=== PATIENT | male | born 1955 | race Caucasian/White ===

== ENCOUNTER 2017-12-12 07:45 | Day surgery (SDC) | payer MEDICARE ==
[~2017-12-12] VITALS: Ht 180.3 cm; Wt 83.9 kg
[~2017-12-12 07:45] MED LIST: ACYC400 PO; ALBU90OI INH; ASPI81CH PO; Advair Hfa 230-12 GM INH; Aspirin EC325 MG PO; CLON2 PO; DIAZ5 PO; GABA300 PO; HYDACE10B PO; IBUP400 PO; IBUP800 PO; LEVSOD50 PO; LISI5 PO; LORA10 PO; MELO7.5 PO; META800 PO; MULTI VITAMIN1 EACH PO; Mucinex1200 MG PO; NAPR500 PO; OXYACE5T PO; PRAV20 PO; PRED10 PO; PRED20 PO; TRAM50 PO
== END 2017-12-12 22:37 | disposition home or self-care (01) ==
LOC: ORSCMMR 07:45 → ORD 10:30 → ORSCMMR 22:37
PROVIDERS: Surgery
PROC: 0WUF0JZ Supplement Abdominal Wall with Synthetic Substitute, Open Approach (ICD-10-PCS; principal; 2017-12-12 09:30)
DX: K42.9 Umbilical hernia without obstruction or gangrene (principal); I10 Essential (primary) hypertension; J44.9 Chronic obstructive pulmonary disease, unspecified; E03.9 Hypothyroidism, unspecified; Z79.899 Other long term (current) drug therapy; Z79.82 Long term (current) use of aspirin; Z87.891 Personal history of nicotine dependence
CPT/HCPCS: C1781; J0330; J0690; J2001; J2250; J3010; J7120

== ENCOUNTER 2018-06-12 11:09 | Emergency (ER) | payer MEDICARE ==
[~2018-06-12] VITALS: Ht 182.9 cm; Wt 83.9 kg
[2018-06-12 11:59] LABS: BASOPHILS ABSOLUTE AUTO 0.08 K/mm3 (0.00-0.23); BASOPHILS PERCENT AUTO 1 % (0-2); EOSINOPHILS ABSOLUTE AUTO 0.41 K/mm3 (0.00-0.68); EOSINOPHILS PERCENT AUTO 6 % (0-6); Hematocrit 43.4 % (37.0-53.0); IMMATURE GRAN ABSOLUTE AUTO 0.03 K/mm3 (0.00-0.10); IMMATURE GRAN PERCENT AUTO 0 % (0-1); LYMPHOCYTES ABSOLUTE AUTO 1.49 K/mm3 (0.84-5.20); LYMPHOCYTES PERCENT AUTO 20 % (21-46); MONOCYTES ABSOLUTE AUTO 0.49 K/mm3 (0.16-1.47); MONOCYTES PERCENT AUTO 7 % (4-13); Mean Corpuscular HGB 30.4 pg (26.0-34.0); Mean Corpuscular HGB Conc 32.3 g/dL (31.5-36.5); Mean Corpuscular Volume 94 fL (80-100); Mean Platelet Volume 9.1 fL (9.1-12.4); NEUTROPHILS ABSOLUTE AUTO 4.94 K/mm3 (1.96-9.15); NEUTROPHILS PERCENT AUTO 66 % (41-73); Platelet Count 255 K/mm3 (150-400); RDW Coefficient Variation 12.4 % (11.7-14.2); RDW Standard Deviation 42.9 fL (35.1-46.3); White Blood Cell Count 7.44 K/mm3 (4.00-11.30)
[2018-06-12 12:24] LABS: Alanine Aminotransfer (ALT/SGP 20 U/L (12-78); Albumin, Blood 4.1 g/dL (3.4-5.0); Albumin/Globulin Ratio 0.9 (0.8-1.8); Alk Phos 94 U/L (50-136); Anion Gap 5 mmol/L (6-16); Aspartate Aminotrans (AST/SGOT 19 U/L (12-37); Bilirubin, Total 0.3 mg/dL (0.1-1.0); Blood Urea Nitrogen 12 mg/dL (8-24); Bun/Creatinine Ratio 13.2 (12.0-20.0); CO2, Blood 25 mmol/L (21-32); Chloride, Blood 106 mmol/L (98-108); Creatinine, Blood 0.91 mg/dL (0.60-1.20); Globulin, Blood 4.4 g/dL (2.2-4.0); Glomerular Filtration Rate >60 (60-); Glucose, Blood 104 mg/dL (70-99); Potassium, Blood 4.5 mmol/L (3.5-5.5); Sodium, Blood 136 mmol/L (136-145); Total Protein, Blood 8.5 g/dL (6.4-8.2); Troponin I <0.015 ng/mL (0.000-0.040)
[2018-06-12] MEDS ORDERED: Advair Hfa 230-12 GM (12:36)
[2018-06-12] MEDS ORDERED: COMBIVENT RESPIM4 GM (12:36)
[2018-06-12] MEDS ORDERED: ALBU90OI INH (16:02)
[2018-06-12] MEDS ORDERED: Zithromax250 MG PO (16:02)
[2018-06-12] MEDS ORDERED: PRED20 PO (16:02)
[2018-06-12] MEDS ORDERED: NICO21TP TD (16:12)
== END 2018-06-12 16:20 | disposition home or self-care (01) ==
LOC: ER 11:09
PROVIDERS: Emergency Medicine
DX: J44.1 Chronic obstructive pulmonary disease with (acute) exacerbation (principal); F17.200 Nicotine dependence, unspecified, uncomplicated; Z86.73 Personal history of transient ischemic attack (TIA), and cerebral infarction without residual deficits; Z79.899 Other long term (current) drug therapy
CPT/HCPCS: 36415; 71046; 80053; 84484; 85025; 93005; 93010; 94640; 96361; 96365; 96375; 99284-25; J2930; J3475; J7030

== ENCOUNTER 2022-01-04 19:30 | Emergency (ER) | payer MEDICARE ==
[~2022-01-04] VITALS: Ht 182.9 cm; Wt 82.1 kg
[~2022-01-04 19:30] MED LIST changes: +Advair Hfa 230-12 GM; +COMBIVENT RESPIM4 GM; +NICO21TP TD; +Zithromax250 MG PO
[2022-01-04] MEDS ORDERED: EUTHYROX100 MC1 PO (20:02)
[2022-01-04 20:34] LABS: BASOPHILS ABSOLUTE AUTO 0.06 K/mm3 (0.00-0.23); BASOPHILS PERCENT AUTO 1 % (0-2); EOSINOPHILS ABSOLUTE AUTO 0.31 K/mm3 (0.00-0.68); EOSINOPHILS PERCENT AUTO 3 % (0-6); Hematocrit 36.3 % (37.0-53.0); IMMATURE GRAN ABSOLUTE AUTO 0.03 K/mm3 (0.00-0.10); IMMATURE GRAN PERCENT AUTO 0 % (0-1); LYMPHOCYTES ABSOLUTE AUTO 1.76 K/mm3 (0.84-5.20); LYMPHOCYTES PERCENT AUTO 17 % (21-46); MONOCYTES ABSOLUTE AUTO 0.51 K/mm3 (0.16-1.47); MONOCYTES PERCENT AUTO 5 % (4-13); Mean Corpuscular HGB 29.9 pg (26.0-34.0); Mean Corpuscular HGB Conc 33.1 g/dL (31.5-36.5); Mean Corpuscular Volume 90 fL (80-100); Mean Platelet Volume 9.3 fL (9.1-12.4); NEUTROPHILS ABSOLUTE AUTO 7.43 K/mm3 (1.96-9.15); NEUTROPHILS PERCENT AUTO 74 % (41-73); Platelet Count 285 K/mm3 (150-400); RDW Coefficient Variation 13.2 % (11.7-14.2); RDW Standard Deviation 43.7 fL (35.1-46.3); Red Blood Cell Count 4.02 M/mm3 (4.30-5.90)
[2022-01-04 20:53] LABS: Albumin, Blood 3.1 g/dL (3.4-5.0); Albumin/Globulin Ratio 0.7 (0.8-1.8); Bilirubin, Total 0.3 mg/dL (0.1-1.0); Bun/Creatinine Ratio 12.1 (12.0-20.0); Calcium, Blood 9.1 mg/dL (8.5-10.1); Creatinine, Blood 0.83 mg/dL (0.60-1.20); Globulin, Blood 4.3 g/dL (2.2-4.0); Potassium, Blood 3.9 mmol/L (3.5-5.5); Total Protein, Blood 7.4 g/dL (6.4-8.2)
[2022-01-04] MEDS ORDERED: DOXY100 PO (21:59)
[2022-01-04] MEDS ORDERED: PRED20 PO (21:59)
[2022-01-04] MEDS ORDERED: ALBU90OI INH (22:15)
== END 2022-01-04 22:17 | disposition home or self-care (01) ==
LOC: ER 19:30
PROVIDERS: Student in an Organized Health Care Education/Training Program
DX: J44.1 Chronic obstructive pulmonary disease with (acute) exacerbation (principal); I10 Essential (primary) hypertension; Z86.73 Personal history of transient ischemic attack (TIA), and cerebral infarction without residual deficits; Z87.891 Personal history of nicotine dependence; Z79.899 Other long term (current) drug therapy; Z79.52 Long term (current) use of systemic steroids
CPT/HCPCS: 71046; 80053; 85025; 93005; 93010; 94640; 94664; A9270; J7512

== ENCOUNTER 2023-02-10 16:19 | Inpatient (IN) | payer MEDICARE ==
[~2023-02-10] VITALS: Ht 182.9 cm; Wt 92.5 kg
[~2023-02-10 16:19] MED LIST changes: +DOXY100 PO; +EUTHYROX100 MC1 PO
[2023-02-10 17:13] LABS: BASOPHILS ABSOLUTE AUTO 0.04 K/mm3 (0.00-0.23); BASOPHILS PERCENT AUTO 0 % (0-2); EOSINOPHILS ABSOLUTE AUTO 0.12 K/mm3 (0.00-0.68); EOSINOPHILS PERCENT AUTO 1 % (0-6); Hemoglobin 12.4 g/dL (13.5-17.5); IMMATURE GRAN ABSOLUTE AUTO 0.11 K/mm3 (0.00-0.10); IMMATURE GRAN PERCENT AUTO 1 % (0-1); LYMPHOCYTES ABSOLUTE AUTO 2.01 K/mm3 (0.84-5.20); LYMPHOCYTES PERCENT AUTO 11 % (21-46); MONOCYTES ABSOLUTE AUTO 1.05 K/mm3 (0.16-1.47); MONOCYTES PERCENT AUTO 6 % (4-13); Mean Corpuscular HGB 29.3 pg (26.0-34.0); Mean Corpuscular HGB Conc 32.6 g/dL (31.5-36.5); Mean Corpuscular Volume 90 fL (80-100); Mean Platelet Volume 9.5 fL (9.1-12.4); NEUTROPHILS ABSOLUTE AUTO 15.14 K/mm3 (1.96-9.15); NEUTROPHILS PERCENT AUTO 82 % (41-73); Platelet Count 261 K/mm3 (150-400); RDW Coefficient Variation 13.9 % (11.7-14.2); RDW Standard Deviation 45.2 fL (35.1-46.3); Red Blood Cell Count 4.23 M/mm3 (4.30-5.90); White Blood Cell Count 18.47 K/mm3 (4.00-11.30)
[2023-02-10 17:38] LABS: Albumin, Blood 3.8 g/dL (3.4-5.0); Albumin/Globulin Ratio 0.9 (0.8-1.8); Bilirubin, Total 0.4 mg/dL (0.1-1.0); Bun/Creatinine Ratio 17.9 (12.0-20.0); Calcium, Blood 9.5 mg/dL (8.5-10.1); Creatinine, Blood 0.95 mg/dL (0.60-1.20); Globulin, Blood 4.1 g/dL (2.2-4.0); Potassium, Blood 3.7 mmol/L (3.5-5.5); Total Protein, Blood 7.9 g/dL (6.4-8.2)
[2023-02-10] MEDS ORDERED: ALBU90OI INH (23:05)
[2023-02-10] MEDS ORDERED: Prednisone10 MG PO (23:06)
[2023-02-10] MEDS ORDERED: Desyrel150 MG PO (23:09)
[2023-02-10] MEDS ORDERED: BREZTRI AEROS10.7 GM INH (23:09)
[2023-02-10] MEDS ORDERED: DIAZ5 PO (23:09)
[2023-02-10] MEDS ORDERED: FLUT1DIS5 INH (23:10)
[2023-02-10] MEDS ORDERED: SERT100 PO (23:10)
[2023-02-10] MEDS ORDERED: COMBIVENT RESPIM4 G1 INH (23:11)
[2023-02-10 23:34] LABS: Influenza A, PCR NEGATIVE (NEGATIVE); Influenza B, PCR NEGATIVE (NEGATIVE); Resp Syncytial Virus, PCR NEGATIVE (NEGATIVE); SARS-Cov-2 (COVID-19) PCR, MMC NEGATIVE (NEGATIVE)
[2023-02-11 01:38] VITALS: BP 134/72
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
[2023-02-11 03:38] LABS: Source, Urine Clean Catch
[2023-02-11 03:42] LABS: Bilirubin, Urine Neg (Neg); Blood, Urine 1+ (Neg); Glucose Qualitative, Urine Neg (Neg); Ketones, Urine 2+ (Neg); Leukocyte Esterase, Urine 1+ (Neg); Nitrite, Urine Neg (Neg); Protein, Urine Neg (Neg); Specific Gravity, Urine 1.015 (1.003-1.022); Urobilinogen, Urine NORM (Normal)
[2023-02-11 04:19] VITALS: BP 133/74
[2023-02-11 04:33] LABS: Base Excess Venous 2.2 mmol/L; Bicarbonate Venous 26.4 mmol/L (24.0-30.0); PCO2 Venous 37.7 mmHg (38-42); pH Blood Venous 7.45 (7.34-7.37)
[2023-02-11 05:18] LABS: Appearance, Urine Clear (Clear); Color, Urine Yellow (P-Yellow)
[2023-02-11 05:20] LABS: Bacteria Few /hpf; Red Blood Cells, Urine 0-2 /hpf (0-2); Squamous Epithelial Cells Few /hpf (Few); White Blood Cells, Urine 0-2 /hpf (0-5)
--- NOTE | 2023-02-11 05:27 | NUR ---
SHIFT SUMMARY PATIENT DENIES PAIN AND NAUSEA. PATIENT DENIES SHORTNESS OF BREATH AT REST, BUT HAS VISIBLE LABORED BREATHING. PATIENT HAS SHORTNESS OF BREATH WITH EXERTION. PATIENTS MENTATION HAS NOT CHANGED FROM PREVIOUS NOTE. PATIENT ATTEMPTED TO GET OUT OF BED, SITTING ON SIDE OF BED WITH VISIBLE INCREASED WORK OF BREATHING AND AUDIBLE WHEEZE FROM DOORWAY. O2 INCREASED TO 6L, MAINTAINING SATS AT 95%. RT CALLED FOR BREATHING TREATMENT. PATIENT SLEPT ON AND OFF SINCE ARRIVAL TO FLOOR. CONDOM CATH IN PLACE, DRAINING TO GRAVITY. PATIENT IS PLEASANT AND COOPERATIVE WITH CARE.
[2023-02-11 07:36] VITALS: BP 138/93
[2023-02-11 15:47] VITALS: BP 145/75
--- NOTE | 2023-02-11 18:05 | NUR ---
SUMMARY- PT IS DOWN TO 4L OF OXYGEN. PT IS A X2 ASSIST TO THE BSC. MODERATE-SEVERE DYSPNEA UPON EXERTION. AAOX2. ORIENTED TO PALCE AND PERSON ONLY.
[2023-02-11 20:09] VITALS: BP 154/81
[2023-02-11] MEDS ORDERED: PROZAC2010 PO (23:35)
[2023-02-12 04:19] VITALS: BP 157/91
[2023-02-12 05:57] LABS: BASOPHILS ABSOLUTE AUTO 0.01 K/mm3 (0.00-0.23); BASOPHILS PERCENT AUTO 0 % (0-2); EOSINOPHILS PERCENT AUTO 0 % (0-6); Hematocrit 34.1 % (37.0-53.0); Hemoglobin 10.9 g/dL (13.5-17.5); IMMATURE GRAN ABSOLUTE AUTO 0.14 K/mm3 (0.00-0.10); IMMATURE GRAN PERCENT AUTO 1 % (0-1); LYMPHOCYTES PERCENT AUTO 6 % (21-46); MONOCYTES ABSOLUTE AUTO 0.26 K/mm3 (0.16-1.47); MONOCYTES PERCENT AUTO 2 % (4-13); Mean Corpuscular HGB 29.1 pg (26.0-34.0); Mean Corpuscular Volume 91 fL (80-100); Mean Platelet Volume 10.1 fL (9.1-12.4); NEUTROPHILS ABSOLUTE AUTO 11.69 K/mm3 (1.96-9.15); NEUTROPHILS PERCENT AUTO 91 % (41-73); Platelet Count 240 K/mm3 (150-400); RDW Coefficient Variation 13.9 % (11.7-14.2); RDW Standard Deviation 46.5 fL (35.1-46.3); Red Blood Cell Count 3.74 M/mm3 (4.30-5.90)
[2023-02-12 06:33] LABS: Albumin, Blood 2.9 g/dL (3.4-5.0); Albumin/Globulin Ratio 0.7 (0.8-1.8); Bilirubin, Total 0.3 mg/dL (0.1-1.0); Bun/Creatinine Ratio 22.9 (12.0-20.0); Calcium, Blood 9.4 mg/dL (8.5-10.1); Creatinine, Blood 0.74 mg/dL (0.60-1.20); Potassium, Blood 4.1 mmol/L (3.5-5.5); Total Protein, Blood 6.9 g/dL (6.4-8.2)
[2023-02-12 07:31] VITALS: BP 177/87
[2023-02-12 15:28] VITALS: BP 144/79
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
[2023-02-12 20:12] VITALS: BP 144/80
[2023-02-13 03:02] VITALS: BP 140/88
--- NOTE | 2023-02-13 04:25 | NUR ---
END OF SHIFT SUMMARY UNEVENTFUL NIGHT. PT SLEPT MUCH BETTER TONIGHT THAN THE PREVIOUS NIGHT. PT ON 3L OXYGEN VIA NC AND O2 SAT AT 91%. PT ON TELEMETRY NSR HEART RATE IN THE 60'S. RESP RATE EVEN, REGULAR AND UNLABORED. PT A&O x4, VSS, AFEBRILE. SEVERE DYSPNEA OCCURED WHILE STANDING UP TO USE THE URINAL. PT 1-2P ASSIST WITH TRANSFERS FOR SAFETY D/T OXYGEN TUBING, TELEMETRY CORDS, AND CONTINUOUS PULSE OX TO LEFT INDEX FINGER. SAFETY CHECKS COMPLETED ON THIS SHIFT. BED ALARM TURNED ON. PT PLEASANT, VERY SOCIAL AND COOPERATIVE WITH CARE PROVIDED. PT ABLE TO MAKE NEEDS KNOWN. CALL LIGHT WITHIN REACH, WCTM.
[2023-02-13 06:08] LABS: BASOPHILS ABSOLUTE AUTO 0.01 K/mm3 (0.00-0.23); BASOPHILS PERCENT AUTO 0 % (0-2); EOSINOPHILS PERCENT AUTO 0 % (0-6); Hemoglobin 11.5 g/dL (13.5-17.5); IMMATURE GRAN ABSOLUTE AUTO 0.09 K/mm3 (0.00-0.10); IMMATURE GRAN PERCENT AUTO 1 % (0-1); LYMPHOCYTES ABSOLUTE AUTO 1.04 K/mm3 (0.84-5.20); LYMPHOCYTES PERCENT AUTO 9 % (21-46); MONOCYTES PERCENT AUTO 4 % (4-13); Mean Corpuscular HGB 29.2 pg (26.0-34.0); Mean Corpuscular HGB Conc 31.9 g/dL (31.5-36.5); Mean Corpuscular Volume 91 fL (80-100); Mean Platelet Volume 9.9 fL (9.1-12.4); NEUTROPHILS ABSOLUTE AUTO 10.65 K/mm3 (1.96-9.15); NEUTROPHILS PERCENT AUTO 87 % (41-73); Platelet Count 266 K/mm3 (150-400); RDW Coefficient Variation 13.8 % (11.7-14.2); RDW Standard Deviation 46.4 fL (35.1-46.3); Red Blood Cell Count 3.94 M/mm3 (4.30-5.90); White Blood Cell Count 12.29 K/mm3 (4.00-11.30)
[2023-02-13 06:27] LABS: Bun/Creatinine Ratio 31.9 (12.0-20.0); Calcium, Blood 9.9 mg/dL (8.5-10.1); Creatinine, Blood 0.72 mg/dL (0.60-1.20); Potassium, Blood 4.1 mmol/L (3.5-5.5)
[2023-02-13 07:26] VITALS: BP 168/118
[2023-02-13 07:29] VITALS: BP 167/81
--- NOTE | 2023-02-13 12:09 | NUR ---
DR FORDE NOTOFED DR FORDE OF THE RESULTS OF PT HOME O2 EVAL. NO ORDERS AT THIS TIME. CONTINUE POC.
[2023-02-13] MEDS ORDERED: Loratadine10 MG PO (15:27)
[2023-02-13] MEDS ORDERED: LOSA25 PO (15:27)
[2023-02-13] MEDS ORDERED: PRED20 PO (15:30)
[2023-02-13] MEDS ORDERED: BUDESONIDE0.5 MG/2 M INH (15:31)
[2023-02-13 15:33] VITALS: BP 143/80
--- NOTE | 2023-02-13 16:41 | NUR ---
DISCHARGE DISCHARGED HOME. H/H TO BE ARRANGED. IV REMOVED WITH CANNULA ITNACT. PRESSURE DRESSING APPLIED. CONTINUE POC.
== END 2023-02-13 16:26 | disposition home health service (06) | DRG 189 ==
LOC: ER 16:19 → ERHOLD 23:59 → MEDS 23:59 → ENPENDDIS 02-13 15:50 → MEDS 02-13 16:26
PROVIDERS: Hospitalist; Physician Assistant; Student in an Organized Health Care Education/Training Program; ADMIT Internal Medicine
DX: J96.01 Acute respiratory failure with hypoxia (principal); J44.1 Chronic obstructive pulmonary disease with (acute) exacerbation; J96.22 Acute and chronic respiratory failure with hypercapnia; I10 Essential (primary) hypertension; F17.210 Nicotine dependence, cigarettes, uncomplicated; D72.829 Elevated white blood cell count, unspecified; E03.9 Hypothyroidism, unspecified; F41.8 Other specified anxiety disorders; Z98.890 Other specified postprocedural states; Z90.2 Acquired absence of lung [part of]; Z86.73 Personal history of transient ischemic attack (TIA), and cerebral infarction without residual deficits; Z79.890 Hormone replacement therapy; Z79.899 Other long term (current) drug therapy
CPT/HCPCS: 0241U; 36415; 71046; 80048; 80053; 81001; 82803; 83605; 85025; 87040; 87086; 93005; 93010; 94640; 94645; 94664; 94760; 94761; 94762; 96365; 96367; 96375; 97110; 97116; 97162; 97165; 97530; 97535; 99285-25; A9270; C9113; J0360; J0456; J0696; J1650; J2930; J7050; J7626

== ENCOUNTER 2023-03-26 16:52 | Emergency (ER) | payer MEDICARE ==
[~2023-03-26] VITALS: Ht 182.9 cm; Wt 93.4 kg
[~2023-03-26 16:52] MED LIST changes: +BREZTRI AEROS10.7 GM INH; +BUDESONIDE0.5 MG/2 M INH; +COMBIVENT RESPIM4 G1 INH; +Desyrel150 MG PO; +FLUT1DIS5 INH; +LOSA25 PO; +Loratadine10 MG PO; +PROZAC2010 PO; +Prednisone10 MG PO; +SERT100 PO
[2023-03-26 17:10] VITALS: BP 158/82
[2023-03-26 17:36] LABS: BASOPHILS ABSOLUTE AUTO 0.03 K/mm3 (0.00-0.23); BASOPHILS PERCENT AUTO 0 % (0-2); EOSINOPHILS ABSOLUTE AUTO 0.08 K/mm3 (0.00-0.68); EOSINOPHILS PERCENT AUTO 1 % (0-6); Hematocrit 42.1 % (37.0-53.0); Hemoglobin 13.3 g/dL (13.5-17.5); IMMATURE GRAN ABSOLUTE AUTO 0.11 K/mm3 (0.00-0.10); IMMATURE GRAN PERCENT AUTO 1 % (0-1); LYMPHOCYTES PERCENT AUTO 13 % (21-46); MONOCYTES ABSOLUTE AUTO 0.54 K/mm3 (0.16-1.47); MONOCYTES PERCENT AUTO 5 % (4-13); Mean Corpuscular HGB Conc 31.6 g/dL (31.5-36.5); Mean Corpuscular Volume 92 fL (80-100); Mean Platelet Volume 9.6 fL (9.1-12.4); NEUTROPHILS PERCENT AUTO 80 % (41-73); Platelet Count 269 K/mm3 (150-400); RDW Coefficient Variation 14.1 % (11.7-14.2); RDW Standard Deviation 47.3 fL (35.1-46.3); Red Blood Cell Count 4.58 M/mm3 (4.30-5.90); White Blood Cell Count 10.06 K/mm3 (4.00-11.30)
[2023-03-26 18:04] LABS: Albumin, Blood 3.7 g/dL (3.4-5.0); Albumin/Globulin Ratio 0.9 (0.8-1.8); Bilirubin, Total 0.2 mg/dL (0.1-1.0); Calcium, Blood 9.6 mg/dL (8.5-10.1); Creatinine, Blood 0.93 mg/dL (0.60-1.20); Globulin, Blood 4.2 g/dL (2.2-4.0); Potassium, Blood 4.2 mmol/L (3.5-5.5); Total Protein, Blood 7.9 g/dL (6.4-8.2)
== END 2023-03-26 20:13 | disposition home or self-care (01) ==
LOC: ER 16:52
PROVIDERS: Physician Assistant
DX: J44.1 Chronic obstructive pulmonary disease with (acute) exacerbation (principal); I10 Essential (primary) hypertension; Z79.899 Other long term (current) drug therapy; Z87.891 Personal history of nicotine dependence
CPT/HCPCS: 71046; 80053; 83690; 83880; 84484; 85025; 93005; 93010; 94640; 94664; 99285-25

== ENCOUNTER 2023-04-12 05:31 | Observation (INO) | payer MEDICARE ==
[~2023-04-12] VITALS: Ht 182.9 cm; Wt 92.5 kg
[2023-04-12 06:06] LABS: BASOPHILS ABSOLUTE AUTO 0.08 K/mm3 (0.00-0.23); BASOPHILS PERCENT AUTO 1 % (0-2); EOSINOPHILS ABSOLUTE AUTO 0.36 K/mm3 (0.00-0.68); EOSINOPHILS PERCENT AUTO 4 % (0-6); Hematocrit 40.3 % (37.0-53.0); Hemoglobin 12.8 g/dL (13.5-17.5); IMMATURE GRAN ABSOLUTE AUTO 0.05 K/mm3 (0.00-0.10); IMMATURE GRAN PERCENT AUTO 1 % (0-1); LYMPHOCYTES ABSOLUTE AUTO 2.02 K/mm3 (0.84-5.20); LYMPHOCYTES PERCENT AUTO 23 % (21-46); MONOCYTES ABSOLUTE AUTO 0.52 K/mm3 (0.16-1.47); MONOCYTES PERCENT AUTO 6 % (4-13); Mean Corpuscular HGB 29.3 pg (26.0-34.0); Mean Corpuscular HGB Conc 31.8 g/dL (31.5-36.5); Mean Corpuscular Volume 92 fL (80-100); Mean Platelet Volume 9.5 fL (9.1-12.4); NEUTROPHILS ABSOLUTE AUTO 5.62 K/mm3 (1.96-9.15); NEUTROPHILS PERCENT AUTO 65 % (41-73); Platelet Count 254 K/mm3 (150-400); RDW Coefficient Variation 14.1 % (11.7-14.2); RDW Standard Deviation 47.7 fL (35.1-46.3); Red Blood Cell Count 4.37 M/mm3 (4.30-5.90); White Blood Cell Count 8.65 K/mm3 (4.00-11.30)
[2023-04-12 06:22] LABS: Albumin, Blood 3.7 g/dL (3.4-5.0); Albumin/Globulin Ratio 0.9 (0.8-1.8); Bilirubin, Total 0.3 mg/dL (0.1-1.0); Bun/Creatinine Ratio 8.9 (12.0-20.0); Calcium, Blood 9.1 mg/dL (8.5-10.1); Creatinine, Blood 1.01 mg/dL (0.60-1.20); Globulin, Blood 4.1 g/dL (2.2-4.0); Potassium, Blood 3.7 mmol/L (3.5-5.5); Total Protein, Blood 7.8 g/dL (6.4-8.2)
[2023-04-12 06:33] LABS: Base Excess Venous 7.6 mmol/L; Bicarbonate Venous 28.4 mmol/L (24.0-30.0); PCO2 Venous 66.3 mmHg (38-42); pH Blood Venous 7.32 (7.34-7.37)
[2023-04-12 11:23] VITALS: BP 187/91
--- NOTE | 2023-04-12 15:49 | NUR ---
SHIFT SUMMARY 11:15 RECEIVED PT TO RM 311 VIA W/C FROM ER. PT TO ER WITH C/O SOB AND DSYPNEA. PER REPORT, PT VERY WHEEZY, BUT IMPROVED AFTER 1 HR LONG RT TX. AND SOLUMEDROL. PT ABLE TO TX SELF TO BED AND LATER UP TO BTHRM USING FWW AND SBA. PT WITH HX OF CVA, REPORTING SOME L SIDE WEAKNESS. DR HERNANDEZ NOTIFIED OF PT'S REQUEST FOR FOOD AND MEDS. PT NPO UNTIL TROPONIN COMPLETE. PT TO EAT DINNER AND THEN BE NPO AGAIN FOR ONE DAY STRESS TEST PROTOCOL TO START AT 0800 TOMORROW. RT TX'S ORDERED AND GIVEN PER EMAR AND RT. PT SITTING UP TO EOB WATCHING TV AND TALKING ON PHONE. PT DOES GET SOB WITH DYSPNEA GETTING UP TO BTHRM, BUT DOES RECOVER AT REST AGAIN. CALL LT IN REACH. ABLE TO MAKE NEEDS KNOWN.
[2023-04-12 15:52] VITALS: BP 149/80
[2023-04-12 20:00] VITALS: BP 180/102
[2023-04-13 02:30] LABS: BASOPHILS ABSOLUTE AUTO 0.02 K/mm3 (0.00-0.23); BASOPHILS PERCENT AUTO 0 % (0-2); EOSINOPHILS ABSOLUTE AUTO 0.03 K/mm3 (0.00-0.68); EOSINOPHILS PERCENT AUTO 0 % (0-6); Hematocrit 37.3 % (37.0-53.0); Hemoglobin 12.4 g/dL (13.5-17.5); IMMATURE GRAN ABSOLUTE AUTO 0.05 K/mm3 (0.00-0.10); IMMATURE GRAN PERCENT AUTO 1 % (0-1); LYMPHOCYTES ABSOLUTE AUTO 1.63 K/mm3 (0.84-5.20); LYMPHOCYTES PERCENT AUTO 17 % (21-46); MONOCYTES ABSOLUTE AUTO 0.76 K/mm3 (0.16-1.47); MONOCYTES PERCENT AUTO 8 % (4-13); Mean Corpuscular HGB 29.5 pg (26.0-34.0); Mean Corpuscular HGB Conc 33.2 g/dL (31.5-36.5); Mean Corpuscular Volume 89 fL (80-100); Mean Platelet Volume 9.4 fL (9.1-12.4); NEUTROPHILS ABSOLUTE AUTO 7.33 K/mm3 (1.96-9.15); NEUTROPHILS PERCENT AUTO 75 % (41-73); Platelet Count 252 K/mm3 (150-400); Red Blood Cell Count 4.21 M/mm3 (4.30-5.90); White Blood Cell Count 9.82 K/mm3 (4.00-11.30)
[2023-04-13 02:49] LABS: Albumin, Blood 3.4 g/dL (3.4-5.0); Albumin/Globulin Ratio 0.8 (0.8-1.8); Bilirubin, Total 0.3 mg/dL (0.1-1.0); Bun/Creatinine Ratio 14.5 (12.0-20.0); Calcium, Blood 9.5 mg/dL (8.5-10.1); Creatinine, Blood 0.9 mg/dL (0.60-1.20); Globulin, Blood 4.1 g/dL (2.2-4.0); Potassium, Blood 3.7 mmol/L (3.5-5.5); Total Protein, Blood 7.5 g/dL (6.4-8.2)
[2023-04-13 03:52] VITALS: BP 173/86
--- NOTE | 2023-04-13 04:46 | NUR ---
HOSPITALIST CONTACTED. DR. ROBLEDO CONTACTED, PATIENT SYSTOLIC B/P AT 173- DR ROBLEDO ORDERED APRESELINE FOR SBP > 160. MEDICATION ADMINISTRATED PER ORDERED.
--- NOTE | 2023-04-13 05:53 | NUR ---
SHIFT SUMMARY PATIENT SLEPT MOST OF NIGHT. PATIENT USED A URINAL AT BEDSIDE AND CALLED TO GET UP AND USE THE RESTROOM AT TIMES. PATIENT IS PLEASANT AND COOPERATIVE WITH CARE. THIS MORNING PATIENT REPORTS THAT HE IS HAVING DIFFICULTY BREATHING AND WOULS LIKE OXYGEN. PATIENTS O2 STATS ARE AT 96% WHEN CHECKED WITH THE VITALS TOWER. PATIENT SITTING UP AT BEDSIDE. ENCOURAGED PATIENT TO TAKE SLOW DEEP BREATHES IN THROUGH THE NOSE AND OUT THROUGH THE MOUTH. BED IS LOCKED IN THE LOWEEST POSITION WITH CALL LIGHT IN REACH. PATIENT REPORTS THAT HE DID THIS DURING THE NIGHT TO GET THROUGH A LITTLE SPELL OF HAVING A HARD TIME CATCHING HIS BREATH WITH RELIEF AND WAS ABLE TO GO BACK TO SLEEP. BED IS KERI IN THE LOWEST POSITION WITH CALL LIGHT IN REACH FOR SAFETY.
[2023-04-13 07:28] VITALS: BP 148/82
[2023-04-13] MEDS ORDERED: AZIT250 PO (15:17)
[2023-04-13] MEDS ORDERED: PRED20 PO (15:18)
[2023-04-13] MEDS ORDERED: SYMBICORT 160-4.6 GM INH (15:19)
--- NOTE | 2023-04-13 16:23 | NUR ---
PT AWAKE AT START OF SHIFT, SITTING UP TO EOB. PT NPO FOR ONE DAY STRESS TEST PROTOCOL. STRESS TEST PROTOCOL COMPLETE. DR HERNANDEZ NOTIFIED OF COMPLETION TO REVIEW. D/C ORDERS PLACED. MEDS FAXED TO [facility] PER PT REQUEST. PT'S IN EARLY TODAY AND REMAINED AT BS. D/C ORDERED REVIEWED WITH PT AND . VERBALIZED UNDERSTANDING. PT ASSISTED OUT TO 'S CAR VIA W/C, BELONGINGS IN HAND.
== END 2023-04-13 15:51 | disposition home or self-care (01) ==
LOC: ER 05:31 → MEDS 05:32
PROVIDERS: Student in an Organized Health Care Education/Training Program; ADMIT Internal Medicine
DX: J44.1 Chronic obstructive pulmonary disease with (acute) exacerbation (principal); R07.9 Chest pain, unspecified; E03.9 Hypothyroidism, unspecified; F32.A Depression, unspecified; I10 Essential (primary) hypertension; K21.9 Gastro-esophageal reflux disease without esophagitis; E78.5 Hyperlipidemia, unspecified; Z86.73 Personal history of transient ischemic attack (TIA), and cerebral infarction without residual deficits
CPT/HCPCS: 36415; 36416; 71045; 78452; 80053; 82803; 83880; 84443; 84484; 85025; 93005; 93010; 93017; 94640; 94644; 94664; 94760; 96372; 96374-59; 96375; 96376; 99285-25; A9270; A9500; G0378; J0360; J0706; J1650; J2785; J2920; J2930

== ENCOUNTER 2023-06-12 11:50 | Emergency (ER) | payer MEDICARE ==
[~2023-06-12] VITALS: Ht 175.3 cm; Wt 93.4 kg
[~2023-06-12 11:50] MED LIST changes: +AZIT250 PO; +SYMBICORT 160-4.6 GM INH
[2023-06-12 14:10] LABS: BASOPHILS ABSOLUTE AUTO 0.02 K/mm3 (0.00-0.23); BASOPHILS PERCENT AUTO 0 % (0-2); EOSINOPHILS ABSOLUTE AUTO 0.02 K/mm3 (0.00-0.68); EOSINOPHILS PERCENT AUTO 0 % (0-6); Hematocrit 36.9 % (37.0-53.0); Hemoglobin 12.1 g/dL (13.5-17.5); IMMATURE GRAN ABSOLUTE AUTO 0.06 K/mm3 (0.00-0.10); IMMATURE GRAN PERCENT AUTO 1 % (0-1); LYMPHOCYTES ABSOLUTE AUTO 0.55 K/mm3 (0.84-5.20); LYMPHOCYTES PERCENT AUTO 7 % (21-46); MONOCYTES ABSOLUTE AUTO 0.27 K/mm3 (0.16-1.47); MONOCYTES PERCENT AUTO 3 % (4-13); Mean Corpuscular HGB 30.2 pg (26.0-34.0); Mean Corpuscular HGB Conc 32.8 g/dL (31.5-36.5); Mean Corpuscular Volume 92 fL (80-100); Mean Platelet Volume 9.4 fL (9.1-12.4); NEUTROPHILS ABSOLUTE AUTO 6.99 K/mm3 (1.96-9.15); NEUTROPHILS PERCENT AUTO 88 % (41-73); Platelet Count 222 K/mm3 (150-400); RDW Coefficient Variation 15.2 % (11.7-14.2); RDW Standard Deviation 51.5 fL (35.1-46.3); Red Blood Cell Count 4.01 M/mm3 (4.30-5.90); White Blood Cell Count 7.91 K/mm3 (4.00-11.30)
[2023-06-12 14:33] LABS: Albumin, Blood 3.3 g/dL (3.4-5.0); Albumin/Globulin Ratio 0.8 (0.8-1.8); Bilirubin, Total 0.2 mg/dL (0.1-1.0); Bun/Creatinine Ratio 19.5 (12.0-20.0); Calcium, Blood 9.2 mg/dL (8.5-10.1); Creatinine, Blood 0.77 mg/dL (0.60-1.20); Globulin, Blood 4.2 g/dL (2.2-4.0); Potassium, Blood 3.7 mmol/L (3.5-5.5); Total Protein, Blood 7.5 g/dL (6.4-8.2)
[2023-06-12] MEDS ORDERED: BUDESONIDE1 MG/2 M5 IH (16:18)
[2023-06-12] MEDS ORDERED: TRELEGY ELLIPT1 EACH IH (16:18)
[2023-06-12] MEDS ORDERED: Prednisone20 MG PO (16:27)
[2023-06-12 16:43] VITALS: BP 163/81
== END 2023-06-12 16:44 | disposition home or self-care (01) ==
LOC: ER 11:50
PROVIDERS: Physician Assistant
DX: J44.1 Chronic obstructive pulmonary disease with (acute) exacerbation (principal); I10 Essential (primary) hypertension; Z86.73 Personal history of transient ischemic attack (TIA), and cerebral infarction without residual deficits; Z87.09 Personal history of other diseases of the respiratory system; Z87.891 Personal history of nicotine dependence; Z79.51 Long term (current) use of inhaled steroids; Z79.52 Long term (current) use of systemic steroids; Z79.899 Other long term (current) drug therapy
CPT/HCPCS: 80053; 85025; 93005; 93010; 99285-25; J7512

== ENCOUNTER 2023-06-23 15:55 | Emergency (ER) | payer MEDICARE ==
[~2023-06-23] VITALS: Ht 182.9 cm; Wt 93.0 kg
[~2023-06-23 15:55] MED LIST changes: +BUDESONIDE1 MG/2 M5 IH; +Prednisone20 MG PO; +TRELEGY ELLIPT1 EACH IH
[2023-06-23 16:40] LABS: BASOPHILS ABSOLUTE AUTO 0.02 K/mm3 (0.00-0.23); BASOPHILS PERCENT AUTO 0 % (0-2); EOSINOPHILS PERCENT AUTO 0 % (0-6); Hematocrit 39.5 % (37.0-53.0); Hemoglobin 12.7 g/dL (13.5-17.5); IMMATURE GRAN ABSOLUTE AUTO 0.11 K/mm3 (0.00-0.10); IMMATURE GRAN PERCENT AUTO 1 % (0-1); LYMPHOCYTES ABSOLUTE AUTO 0.71 K/mm3 (0.84-5.20); LYMPHOCYTES PERCENT AUTO 5 % (21-46); MONOCYTES ABSOLUTE AUTO 0.58 K/mm3 (0.16-1.47); MONOCYTES PERCENT AUTO 4 % (4-13); Mean Corpuscular HGB 29.7 pg (26.0-34.0); Mean Corpuscular HGB Conc 32.2 g/dL (31.5-36.5); Mean Corpuscular Volume 93 fL (80-100); Mean Platelet Volume 9.5 fL (9.1-12.4); NEUTROPHILS ABSOLUTE AUTO 12.12 K/mm3 (1.96-9.15); NEUTROPHILS PERCENT AUTO 90 % (41-73); Platelet Count 362 K/mm3 (150-400); RDW Coefficient Variation 14.6 % (11.7-14.2); RDW Standard Deviation 49.4 fL (35.1-46.3); Red Blood Cell Count 4.27 M/mm3 (4.30-5.90); White Blood Cell Count 13.54 K/mm3 (4.00-11.30)
[2023-06-23 16:46] LABS: Albumin, Blood 3.4 g/dL (3.4-5.0); Albumin/Globulin Ratio 0.8 (0.8-1.8); Bilirubin, Total 0.4 mg/dL (0.1-1.0); Bun/Creatinine Ratio 14.6 (12.0-20.0); Calcium, Blood 10.1 mg/dL (8.5-10.1); Creatinine, Blood 0.89 mg/dL (0.60-1.20); Globulin, Blood 4.4 g/dL (2.2-4.0); Total Protein, Blood 7.8 g/dL (6.4-8.2)
[2023-06-23 17:01] LABS: Influenza A Negative (NEGATIVE); Influenza B Negative (NEGATIVE)
[2023-06-23 17:15] LABS: SARS-Cov-2 (COVID-19) PCR, MMC NEGATIVE (NEGATIVE)
[2023-06-23 20:24] VITALS: BP 151/86
[2023-06-23] MEDS ORDERED: Prednisone20 MG PO (20:27)
[2023-06-23] MEDS ORDERED: Zithromax250 MG PO (20:27)
[2023-06-23] MEDS ORDERED: AMOCLA875 PO (20:27)
== END 2023-06-23 21:12 | disposition home or self-care (01) ==
LOC: ER 15:55
PROVIDERS: Student in an Organized Health Care Education/Training Program
DX: J43.9 Emphysema, unspecified (principal); J18.9 Pneumonia, unspecified organism; I10 Essential (primary) hypertension; Z79.52 Long term (current) use of systemic steroids; Z79.890 Hormone replacement therapy; Z79.899 Other long term (current) drug therapy; Z87.891 Personal history of nicotine dependence
CPT/HCPCS: 36415; 71046; 80053; 83605; 83880; 85025; 87804; 87807; 94640; 94644; 94664; A9270; J0696; J7512; U0002

== ENCOUNTER 2023-07-10 12:59 | Inpatient (IN) | payer MEDICARE ==
[~2023-07-10] VITALS: Ht 177.8 cm; Wt 86.9 kg
[~2023-07-10 12:59] MED LIST changes: +AMOCLA875 PO; -BUDESONIDE1 MG/2 M5 IH; +BUDESONIDE1 MG/2 M5 NEB; -MULTI VITAMIN1 EACH PO; +MULVITA PO; -PRAV20 PO; +Pravastatin Sod80 MG PO; -TRELEGY ELLIPT1 EACH IH; +TRELEGY ELLIPT1 EACH INH
[2023-07-10 13:31] LABS: BASOPHILS ABSOLUTE AUTO 0.07 K/mm3 (0.00-0.23); BASOPHILS PERCENT AUTO 1 % (0-2); EOSINOPHILS ABSOLUTE AUTO 0.27 K/mm3 (0.00-0.68); EOSINOPHILS PERCENT AUTO 2 % (0-6); Hematocrit 41.5 % (37.0-53.0); Hemoglobin 13.6 g/dL (13.5-17.5); IMMATURE GRAN ABSOLUTE AUTO 0.11 K/mm3 (0.00-0.10); IMMATURE GRAN PERCENT AUTO 1 % (0-1); LYMPHOCYTES ABSOLUTE AUTO 1.57 K/mm3 (0.84-5.20); LYMPHOCYTES PERCENT AUTO 12 % (21-46); MONOCYTES ABSOLUTE AUTO 0.54 K/mm3 (0.16-1.47); MONOCYTES PERCENT AUTO 4 % (4-13); Mean Corpuscular HGB 29.4 pg (26.0-34.0); Mean Corpuscular HGB Conc 32.8 g/dL (31.5-36.5); Mean Corpuscular Volume 90 fL (80-100); Mean Platelet Volume 9.1 fL (9.1-12.4); NEUTROPHILS ABSOLUTE AUTO 10.46 K/mm3 (1.96-9.15); NEUTROPHILS PERCENT AUTO 80 % (41-73); Platelet Count 229 K/mm3 (150-400); RDW Coefficient Variation 14.4 % (11.7-14.2); RDW Standard Deviation 46.4 fL (35.1-46.3); Red Blood Cell Count 4.62 M/mm3 (4.30-5.90); White Blood Cell Count 13.02 K/mm3 (4.00-11.30)
[2023-07-10 13:52] LABS: Albumin, Blood 3.2 g/dL (3.4-5.0); Albumin/Globulin Ratio 0.7 (0.8-1.8); Bilirubin, Total 0.4 mg/dL (0.1-1.0); Bun/Creatinine Ratio 13.1 (12.0-20.0); Calcium, Blood 9.8 mg/dL (8.5-10.1); Creatinine, Blood 0.76 mg/dL (0.60-1.20); Globulin, Blood 4.5 g/dL (2.2-4.0); Potassium, Blood 3.3 mmol/L (3.5-5.5); Total Protein, Blood 7.7 g/dL (6.4-8.2)
[2023-07-10 14:18] LABS: Influenza A, PCR NEGATIVE (NEGATIVE); Influenza B, PCR NEGATIVE (NEGATIVE); Resp Syncytial Virus, PCR NEGATIVE (NEGATIVE); SARS-Cov-2 (COVID-19) PCR, MMC NEGATIVE (NEGATIVE)
[2023-07-10] MEDS ORDERED: Ipratropium/Albuterol SulF 2.5-0.5MG/3 ML Amp INH ONE (18:15)
[2023-07-10] MEDS ORDERED: MethylPREDNISolone Sod Succ 125 MG Vial IV ONE (18:15)
[2023-07-10] MEDS ORDERED: CefTRIAXone Sodium 1,000 MG in NS 50 ML IV ONE (18:15)
[2023-07-10] MEDS ORDERED: Azithromycin 500 MG in NS 250 ML IV ONE (18:15)
[2023-07-10] MEDS ORDERED: Albuterol 2.5 MG/3 ML VIAL INH PRN (23:05)
[2023-07-10] MEDS ORDERED: Ipratropium/Albuterol SulF 2.5-0.5MG/3 ML Amp INH SCH (23:05)
[2023-07-11] VITALS (7 sets, daily range): BP systolic 130–197; BP diastolic 74–126
[2023-07-11] MEDS ORDERED: Rivaroxaban 10 MG Tab PO SCH
[2023-07-11] MEDS ORDERED: Melatonin 3 MG Tab PO SCH
[2023-07-11] MEDS ORDERED: MethylPREDNISolone Sod Succ 125 MG Vial IV SCH
[2023-07-11] MEDS ORDERED: Potassium Chloride 40 MEQ in NS 250 ML IV ONE (00:20)
[2023-07-11] MEDS ORDERED: HydrALAZINE HCl 20 MG / ML 1ML Vial IV PRN (02:00)
[2023-07-11] MEDS ORDERED: HydrALAZINE HCl 20 MG / ML 1ML Vial IV ONE (02:00)
--- NOTE | 2023-07-11 04:31 | NUR ---
2215: ASSUMED CARE OF PT, REPORT RECEIVED FROM ED RN. PT ARRIVED TO THE UNIT VIA STRETCHER, TRANSFERED TO THE BED WITH 2LITERS NC. SATURATION OF 95%. PT REMOVED OXYGEN STATING THAT IT IS NOT HELPFUL. PT ABLE TO MAINTAIN OXYGEN SATURATION >92% ON ROOM AIR. PT HAS LABORED BREATHING, CALL TO PROVIDER TO VERIFY ORDERS, NEW ORDERS RECEIVED FOR MEDICATIONS AND RT TREATMENTS. PT SHOWS MINOR IMPROVEMENT WITH TREATMENTS AND POSITIONING. PIV TO RAC IS PATENT, POTASSIUM STARTED PER ORDERS. PT TOLERATED WELL. TELEMETRY PLACED AND MAINTAINED. EKG OBTAINED PER ORDERS. PT IS ABLE TO MAKE HIS NEEDS KNOWN. SBA TO BSC OR STANDING FOR URINAL USE. LIVES AT HOME WITH HIS . NO FURTHER EVENTS DURING THE SHIFT. SAFETY MEASURES TAKEN, ALL NEEDS ADDRESSED.
[2023-07-11 05:59] LABS: BASOPHILS ABSOLUTE AUTO 0.02 K/mm3 (0.00-0.23); BASOPHILS PERCENT AUTO 0 % (0-2); EOSINOPHILS PERCENT AUTO 0 % (0-6); Hematocrit 40.9 % (37.0-53.0); Hemoglobin 13.5 g/dL (13.5-17.5); IMMATURE GRAN ABSOLUTE AUTO 0.11 K/mm3 (0.00-0.10); IMMATURE GRAN PERCENT AUTO 1 % (0-1); LYMPHOCYTES ABSOLUTE AUTO 1.47 K/mm3 (0.84-5.20); LYMPHOCYTES PERCENT AUTO 13 % (21-46); MONOCYTES ABSOLUTE AUTO 0.45 K/mm3 (0.16-1.47); MONOCYTES PERCENT AUTO 4 % (4-13); Mean Corpuscular HGB 28.9 pg (26.0-34.0); Mean Corpuscular Volume 88 fL (80-100); Mean Platelet Volume 9.3 fL (9.1-12.4); NEUTROPHILS ABSOLUTE AUTO 9.17 K/mm3 (1.96-9.15); NEUTROPHILS PERCENT AUTO 82 % (41-73); Platelet Count 274 K/mm3 (150-400); RDW Coefficient Variation 14.3 % (11.7-14.2); RDW Standard Deviation 45.9 fL (35.1-46.3); Red Blood Cell Count 4.67 M/mm3 (4.30-5.90); White Blood Cell Count 11.22 K/mm3 (4.00-11.30)
[2023-07-11] MEDS ORDERED: Levothyroxine Sodium 0.1 MG Tab PO SCH (06:00)
[2023-07-11 06:20] LABS: Albumin, Blood 3.2 g/dL (3.4-5.0); Albumin/Globulin Ratio 0.7 (0.8-1.8); Bilirubin, Total 0.4 mg/dL (0.1-1.0); Bun/Creatinine Ratio 22.3 (12.0-20.0); Calcium, Blood 9.8 mg/dL (8.5-10.1); Creatinine, Blood 0.63 mg/dL (0.60-1.20); Globulin, Blood 4.7 g/dL (2.2-4.0); Potassium, Blood 4.1 mmol/L (3.5-5.5); Total Protein, Blood 7.9 g/dL (6.4-8.2)
[2023-07-11] MEDS ORDERED: Losartan Potassium 25 MG Tab PO SCH (09:00)
[2023-07-11] MEDS ORDERED: Lactobacil 2-S.Thermo-Bifido 1 1 Cap PO SCH (09:00)
[2023-07-11] MEDS ORDERED: CefTRIAXone Sodium 1,000 MG in NS 50 ML IV SCH (09:00)
[2023-07-11] MEDS ORDERED: Sertraline HCl 100 MG Tab PO SCH (09:00)
[2023-07-11] MEDS ORDERED: DONEPEZIL HCL10 M1 PO (14:28)
[2023-07-11] MEDS ORDERED: IPRAT-ALBUT 0.5-3 ML NEB (14:30)
[2023-07-11] MEDS ORDERED: NEURONTIN300 MG PO (14:34)
[2023-07-11] MEDS ORDERED: Azithromycin 500 MG in NS 250 ML IV SCH (15:00)
--- NOTE | 2023-07-11 18:41 | NUR ---
SHIFT SUMMARY: PT A&O X3-4. OCCASIONALLY FORGET. PT APPEARS TO HAVE ANXIETY ATTACKS. PT WILL BEGIN SPEAKING OF STRESSFUL EVENTS AND AND BEGIN TO HYPERVENTILATE. PT STATES HE USES SEVERAL INHALERS AT HOME PLUS BREATHING TREATMENTS. PT MEDICATED WITH BREATHING TREATMENTS TODAY WITH LITTLE RELIEF. PT REQUESTING TO LEAVE AMA. SPOKE WITH PT REGARDING DIAGNOSIS BUT CONTINUED TO REQUEST AMA. SPOKE WITH PT SHORTLY AFTER AND ALLOWED PT TO SPEAK WITH . PT AGREED TO STAY ANOTHER NIGHT IN HOSPITAL. LUNG SOUNDS TIGHT AND WHEEZY. SPOKE WITH DR. BERRY REQUESTING SLEEP MEDICATION PER PT REQUEST. CALL LIGHT IN REACH. BED IN LOWEST POSITION. WILL REPORT TO ONCOMING RN.
[2023-07-11] MEDS ORDERED: ALPRAZolam 0.25 MG Tab PO SCH (21:00)
[2023-07-12] MEDS ORDERED: MethylPREDNISolone Sod Succ 125 MG Vial IV SCH (06:00)
--- NOTE | 2023-07-12 06:41 | NUR ---
PATIENT IS ALERT AND ORIENTED X3, ON ROOM AIR. ON TELE SINUS TACHY 105. WITH PIV ON RIGHT AC PATENT AND INTACT. COMPLAINT OF SHORTNESS OF BREATH AND ASKED FOR BREATHING TREATMENT, RENDERED BY RT CLEMENT. ON CONT BIOX. NOTED WHEEZES, BREATHING TREATMENT RENDERED AGAIN. COACHED ON HOW TO DO A PURSE-LIP BREATHING. NEEDS ATTENDED. NOT ABLE TO SLEEP WELL. CALL LIGHT WITHIN PATIENT'S REACH. CALLED RESPIRATORY THERAPIST, PT IS REQUESTING ANOTHER NEBLIZATION, WAS TOLD THEY WILL ASSESS PATIENT. WILL CONTINUE TO MONITOR.
[2023-07-12] MEDS ORDERED: ALPRAZolam 0.25 MG Tab PO PRN (07:40)
[2023-07-12 07:47] VITALS: BP 161/117
[2023-07-12] MEDS ORDERED: NS 250 ML IV PRN (07:55)
[2023-07-12] MEDS ORDERED: Metoprolol Succinate 25 MG TABCR PO SCH (10:00)
[2023-07-12] MEDS ORDERED: Losartan Potassium 50 MG Tab PO SCH (10:00)
[2023-07-12] MEDS ORDERED: Morphine Sulfate 10 MG/ML 1MLSYR INH ONE (11:00)
[2023-07-12] MEDS ORDERED: Morphine Sulfate 10 MG/ML 1MLSYR INH PRN (11:00)
[2023-07-12 11:02] LABS: PCO2 Arterial 34.4 mmHg (35-45); PO2 Arterial 59.8 mmHg (80-100); pH Blood Arterial 7.43 (7.35-7.45)
[2023-07-12] MEDS ORDERED: Rivaroxaban 10 MG Tab PO SCH (12:20)
[2023-07-12] MEDS ORDERED: Morphine Sulfate 20 MG/1ML 1 ML Oral Syringe PO PRN (15:00)
[2023-07-12] MEDS ORDERED: TRELEGY ELLIPTA INH SCH (15:30)
[2023-07-12 15:37] VITALS: BP 171/144
[2023-07-12 15:39] VITALS: BP 125/103
--- NOTE | 2023-07-12 17:52 | NUR ---
SHIFT SUMMARY: PT ORIENTED X3. PLEASANT AND COOPERATIVE WITH CARE. PT ACTING VERY ANXIOUS THIS AM. CALLED DR. LEVI AND HAD ORDER PLACED FOR PRN XANEX. MEDICATION PROVIDED WITH NO RELIEF. PT BECAME EVEN MORE ANXIOUS AND BEGAN HYPERVENTILATING WITH ACCESSORY MUSCLE USE MAINTAING HR IN 130'S. SPOKE WITH DR. BERRY AGAIN WHO ORDERED A STAT ABG AND CHEST CT. MORPHINE INH ALSO ORDERED FOR AIR HUNGER WITH APPEARED TO HELP PT. RECEIVED CRITICAL FROM IMAGING OF BILAT PULMONARY EMBOLISM WITHOUT EVIDENCE OF HEART STRAIN. CRITICAL REPORTED TO DR. WELLS WITH ORDERS FOR LOADING DOSE OF XARELTO 15MG BID X21 DAYS. FIRST DOSE GIVEN. OF PT BROUGHT IN HOME TRELEGY INHALER. BROUGHT TO PHARMACY FOR VERIFICATION AND PLACED IN LOCKBOX. PT HAS DRY, NON-PRODUCTIVE COUGH. CONT BIOX IN PLACE. TELE IN PLACE SHOWING SINUS TACH PAC PVC WITH HR IN 100'S. STILL VERY SOB. CALL LIGHT IN REACH. BED IN LOWEST POSITION. WILL REPORT TO ONCOMING RN.
[2023-07-12 20:26] VITALS: BP 137/76
[2023-07-12] MEDS ORDERED: MethylPREDNISolone Sod Succ 40 MG VIAL IV SCH (21:00)
[2023-07-13 04:27] VITALS: BP 148/94
--- NOTE | 2023-07-13 05:46 | NUR ---
PATIENT IS ALERT AND ORIENTED, ON ROOM AIR. WITH CONTUOUS BIOX AND TELE. WITH PIV ON RIGHT AC PATENT AND INTACT. VITAL SIGNS TAKEN AND RECORDED. DUE MEDS GIVEN AND TOLERATED. COMPLAINT OF DIFFICULTY OF BREATHING, NEBULIZATION GIVEN BY RT. SLEPT FAIRLY. TRIED PULLING HIS PULSE OXIMETER MONITOR CORD. HOOKED ON BIPAP, PATIENT DID NOT TOELRATE IT. PATIENT STATED THAT HE WANTS TO GO HOME. WITH OCCASIONAL WHEEZING. NEEDS ATTENDED. WILL CONTINUE TO MONITOR.
[2023-07-13 06:17] LABS: BASOPHILS ABSOLUTE AUTO 0.02 K/mm3 (0.00-0.23); BASOPHILS PERCENT AUTO 0 % (0-2); EOSINOPHILS ABSOLUTE AUTO 0.02 K/mm3 (0.00-0.68); EOSINOPHILS PERCENT AUTO 0 % (0-6); Hemoglobin 13.1 g/dL (13.5-17.5); IMMATURE GRAN ABSOLUTE AUTO 0.09 K/mm3 (0.00-0.10); IMMATURE GRAN PERCENT AUTO 1 % (0-1); LYMPHOCYTES ABSOLUTE AUTO 1.57 K/mm3 (0.84-5.20); LYMPHOCYTES PERCENT AUTO 12 % (21-46); MONOCYTES PERCENT AUTO 6 % (4-13); Mean Corpuscular HGB 29.3 pg (26.0-34.0); Mean Corpuscular HGB Conc 32.8 g/dL (31.5-36.5); Mean Corpuscular Volume 90 fL (80-100); Mean Platelet Volume 9.6 fL (9.1-12.4); NEUTROPHILS ABSOLUTE AUTO 10.42 K/mm3 (1.96-9.15); NEUTROPHILS PERCENT AUTO 81 % (41-73); Platelet Count 282 K/mm3 (150-400); RDW Coefficient Variation 14.7 % (11.7-14.2); RDW Standard Deviation 47.8 fL (35.1-46.3); Red Blood Cell Count 4.47 M/mm3 (4.30-5.90); White Blood Cell Count 12.92 K/mm3 (4.00-11.30)
[2023-07-13 06:54] LABS: Bun/Creatinine Ratio 32.8 (12.0-20.0); Calcium, Blood 9.9 mg/dL (8.5-10.1); Creatinine, Blood 0.64 mg/dL (0.60-1.20)
[2023-07-13 07:46] VITALS: BP 156/117
[2023-07-13 07:47] VITALS: BP 138/91
[2023-07-13 15:44] VITALS: BP 145/98
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
--- NOTE | 2023-07-13 17:26 | NUR ---
Delayed Entry from 1000 this morning 07/13/23 Met with pt d/t referal for pt telling primary RN he wanted to consider comfort care. Darrick told this PC RN, the last few days were really rough. Yesterday he felt like he was dying and wanted to go home. This morning he is greatful for the care he received yesterday and is looking forward to going home tomorrow with home health. Darrick reports prior to admission he was on home health for PT/OT. He is A/O x3, jovial and engauges in conversation. He declines wanting hospice at this time. PC will remain available as needed.
--- NOTE | 2023-07-13 19:13 | NUR ---
DAY SHIFT SUMMARY: A&Ox1-2 SELF AND PERSON ONLY. MARKED INCREASE IN CONFUSION THIS SHIFT; DR COTTRELL NOTIFIED BUT ATTRIBUTED TO MORPHINE HE IS RECEIVING Q4H FOR AIR HUNGER. GIVEN THREE TIMES THIS SHIFT; SEEMINGLY HAS DIFFICUTY BREATHING AND THEN BEGINS PANICKING CAUSING HIM TO HAVE AIR HUNGER. TELE SINUS TACH AND AFIB THROUGOUT THE DAY. DIFFICULTY LEAVING BiOx AND TELE LEADS ON TODAY DUE TO CONFUSION AND AGITATION. NO BM NOTED TODAY. REPORT TO ONCOMING RN.
[2023-07-13 19:50] VITALS: BP 146/90
[2023-07-13] MEDS ORDERED: MethylPREDNISolone Sod Succ 40 MG VIAL IV SCH (21:00)
[2023-07-14 02:31] VITALS: BP 120/62
[2023-07-14 05:50] LABS: BASOPHILS ABSOLUTE AUTO 0.02 K/mm3 (0.00-0.23); BASOPHILS PERCENT AUTO 0 % (0-2); EOSINOPHILS ABSOLUTE AUTO 0.02 K/mm3 (0.00-0.68); EOSINOPHILS PERCENT AUTO 0 % (0-6); Hematocrit 36.2 % (37.0-53.0); Hemoglobin 11.8 g/dL (13.5-17.5); IMMATURE GRAN PERCENT AUTO 1 % (0-1); LYMPHOCYTES ABSOLUTE AUTO 1.31 K/mm3 (0.84-5.20); LYMPHOCYTES PERCENT AUTO 12 % (21-46); MONOCYTES ABSOLUTE AUTO 0.57 K/mm3 (0.16-1.47); MONOCYTES PERCENT AUTO 5 % (4-13); Mean Corpuscular HGB 29.3 pg (26.0-34.0); Mean Corpuscular HGB Conc 32.6 g/dL (31.5-36.5); Mean Corpuscular Volume 90 fL (80-100); Mean Platelet Volume 9.8 fL (9.1-12.4); NEUTROPHILS ABSOLUTE AUTO 8.78 K/mm3 (1.96-9.15); NEUTROPHILS PERCENT AUTO 81 % (41-73); Platelet Count 223 K/mm3 (150-400); RDW Coefficient Variation 14.5 % (11.7-14.2); RDW Standard Deviation 47.7 fL (35.1-46.3); Red Blood Cell Count 4.03 M/mm3 (4.30-5.90)
[2023-07-14 06:20] LABS: Albumin/Globulin Ratio 0.8 (0.8-1.8); Bilirubin, Total 0.4 mg/dL (0.1-1.0); Bun/Creatinine Ratio 35.3 (12.0-20.0); Calcium, Blood 9.3 mg/dL (8.5-10.1); Creatinine, Blood 0.71 mg/dL (0.60-1.20); Globulin, Blood 3.7 g/dL (2.2-4.0); Potassium, Blood 3.9 mmol/L (3.5-5.5); Total Protein, Blood 6.7 g/dL (6.4-8.2)
[2023-07-14 07:25] VITALS: BP 148/77
--- NOTE | 2023-07-14 07:29 | NUR ---
SHIFT SUMMARY PT UP MOST OF NIGHT NEEDING REORIENTING. HAD TO BE REMINDED SEVERAL TIMES HE IS IN THE HOSPITAL. HE WAS LOOKING FOR HIS AND HIS DOG AND HIS MEDICATION BAG. PULLING AT LINES THROUGH NIGHT. PULLED HIS IV OUT AT SHIFT CHANGE. MENTAL STATUS SEEMS TO BE DECLINING FROM BEGINNING OF SHIFT TO END OF SHIFT. POSSIBLE COMFORT CARE.
[2023-07-14 15:29] VITALS: BP 135/83
--- NOTE | 2023-07-14 16:52 | NUR ---
SHIFT SUMMARY A&OX1-2, PERSON AND FAMILY. FORGETFUL AND CONFUSED. DENIED CP/PRESSURE, HEADACHE, OR DIZZINESS. SOB WITH EXERTION. CURRENTLY ON 3L O2 VIA NC, SATTING IN THE LOW 90'S. TELE - SR WITH FREQUENT PAC'S IN THE 80'S AT REST. PATIENT NOTED TO BE AIR HUNGRY T/O SHIFT AND MEDICATED WITH ROXANOL PER EMAR PROTOCOL. PATIENT WORKED WITH PT/OT, BUT REMAINED IN BED USING A URINAL DURING SHIFT. CURRENTLY RESTING IN BED. BED IS IN THE LOWEST POSITION. CALL LIGHT WITHIN REACH.
[2023-07-14 19:22] VITALS: BP 109/69
[2023-07-15 02:31] VITALS: BP 142/79
[2023-07-15 06:03] LABS: BASOPHILS ABSOLUTE AUTO 0.04 K/mm3 (0.00-0.23); BASOPHILS PERCENT AUTO 0 % (0-2); EOSINOPHILS PERCENT AUTO 3 % (0-6); Hematocrit 38.1 % (37.0-53.0); Hemoglobin 12.3 g/dL (13.5-17.5); IMMATURE GRAN ABSOLUTE AUTO 0.14 K/mm3 (0.00-0.10); IMMATURE GRAN PERCENT AUTO 1 % (0-1); LYMPHOCYTES ABSOLUTE AUTO 1.99 K/mm3 (0.84-5.20); LYMPHOCYTES PERCENT AUTO 19 % (21-46); MONOCYTES ABSOLUTE AUTO 0.61 K/mm3 (0.16-1.47); MONOCYTES PERCENT AUTO 6 % (4-13); Mean Corpuscular HGB 29.4 pg (26.0-34.0); Mean Corpuscular HGB Conc 32.3 g/dL (31.5-36.5); Mean Corpuscular Volume 91 fL (80-100); Mean Platelet Volume 9.6 fL (9.1-12.4); NEUTROPHILS ABSOLUTE AUTO 7.32 K/mm3 (1.96-9.15); NEUTROPHILS PERCENT AUTO 70 % (41-73); Platelet Count 252 K/mm3 (150-400); RDW Coefficient Variation 14.5 % (11.7-14.2); RDW Standard Deviation 48.3 fL (35.1-46.3); Red Blood Cell Count 4.19 M/mm3 (4.30-5.90)
[2023-07-15 06:23] LABS: Bun/Creatinine Ratio 24.1 (12.0-20.0); Calcium, Blood 9.3 mg/dL (8.5-10.1); Creatinine, Blood 0.79 mg/dL (0.60-1.20); Potassium, Blood 3.5 mmol/L (3.5-5.5)
--- NOTE | 2023-07-15 07:01 | NUR ---
Shift Summary Pt AOx4 tonight, no episodes of confusion. He c/o severe chest pain and shortness of breath, treated by RT and given PRN Roxinol per EMAR. He slept well t/o most of the night. Continent, uses bedside urinal.
[2023-07-15 08:32] VITALS: BP 145/84
[2023-07-15] MEDS ORDERED: PredniSONE 20 MG Tab PO SCH (09:00)
[2023-07-15] MEDS ORDERED: METO25ER PO (11:18)
[2023-07-15] MEDS ORDERED: MORP20L SL (11:20)
[2023-07-15] MEDS ORDERED: XARELTO15 MG PO (11:21)
--- NOTE | 2023-07-15 14:54 | NUR ---
DISCHARGE A&OX3-4, CONFUSED AT TIMES, COOPERATIVE WITH CARE. COMPLAINED OF AIR HUNGER AND PAIN IN CHEST RELATED TO BILATERAL PE'S. DENIED ANY DIZZINESS OR HEADACHES. NO ACUTE EVENTS THIS SHIFT. ON 2L O2 VIA NC. HOME O2 EVAL COMPLETED AND O2 DELIVERED TO PATIENT'S ROOM. DISCHARGE PACKET REVIEWED WITH PATIENT AND HIS FAMILY MEMEBER. NO QUESIONS OR CONCERNS NOTED. PATIENT DISCHARGED AT 1400.
[2023-07-25] MEDS ORDERED: DIAZ5 (15:49)
[2023-07-25] MEDS ORDERED: FISH OIL 1,0001 EA10 PO (15:50)
[2023-07-25] MEDS ORDERED: THERA-D2000 UNIT PO (15:51)
[2023-07-25] MEDS ORDERED: LORA10ER PO (15:52)
[2023-07-25] MEDS ORDERED: VITAMIN B12500 MCG PO (15:52)
[2023-07-25] MEDS ORDERED: GUAI600T33 PO (15:53)
== END 2023-07-15 14:10 | disposition home health service (06) | DRG 871 ==
LOC: ER 12:59 → MEDS 20:19
PROVIDERS: Family Medicine; Hospitalist; Student in an Organized Health Care Education/Training Program; ADMIT Internal Medicine
PROC: 3E03329 Introduction of Other Anti-infective into Peripheral Vein, Percutaneous Approach (ICD-10-PCS; principal; 2023-07-10)
PROC: 4A033R1 Measurement of Arterial Saturation, Peripheral, Percutaneous Approach (ICD-10-PCS; 2023-07-12)
DX: A41.9 Sepsis, unspecified organism (principal); I26.99 Other pulmonary embolism without acute cor pulmonale; J18.9 Pneumonia, unspecified organism; J96.21 Acute and chronic respiratory failure with hypoxia; J44.1 Chronic obstructive pulmonary disease with (acute) exacerbation; J44.0 Chronic obstructive pulmonary disease with (acute) lower respiratory infection; I69.351 Hemiplegia and hemiparesis following cerebral infarction affecting right dominant side; F33.1 Major depressive disorder, recurrent, moderate; E87.21 Acute metabolic acidosis; Z66 Do not resuscitate; I48.0 Paroxysmal atrial fibrillation; E03.9 Hypothyroidism, unspecified; I10 Essential (primary) hypertension; E87.6 Hypokalemia; F41.9 Anxiety disorder, unspecified; Z87.891 Personal history of nicotine dependence; Z11.52 Encounter for screening for COVID-19; Z79.51 Long term (current) use of inhaled steroids; Z79.52 Long term (current) use of systemic steroids; Z79.890 Hormone replacement therapy
CPT/HCPCS: 0241U; 36415; 36600; 71046; 71260; 80048; 80053; 82803; 83605; 83880; 84484; 85025; 87040; 93005; 93010; 94640; 94660; 94664; 94760; 94761; 94762; 96365; 96367; 96375; 97116; 97162; 97530; 99285-25; A9270; J0360; J0456; J0696; J2270; J2920; J2930; J3480; J7050; J7512; Q9967